=== PATIENT | female | born 2000 | race Caucasian/White ===

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

== ENCOUNTER 2023-01-19 02:55 | Emergency (ER) | payer MEDICAID ==
[~2023-01-19] VITALS: Ht 170.2 cm; Wt 117.9 kg
[~2023-01-19 02:55] MED LIST changes: +ACET-10509 PO; +METO-485 PO; +ONDA-188 SL; -ONDA-24 SL; +PROM118S5 PO
[2023-01-19 02:56] VITALS: BP 140/90
--- NOTE | 2023-01-19 03:00 | NUR ---
TO LOBBY A/W BED AMBULATORY
[2023-01-19 03:45] VITALS: BP 140/90
== END 2023-01-19 03:45 | disposition home or self-care (01) ==
LOC: MED 02:55
DX: I80.8 Phlebitis and thrombophlebitis of other sites (principal); E66.01 Morbid (severe) obesity due to excess calories; Z79.899 Other long term (current) drug therapy; Z68.41 Body mass index [BMI] 40.0-44.9, adult; Z98.84 Bariatric surgery status
CPT/HCPCS: 99281